=== PATIENT | male | born 1995 | race Caucasian/White ===

== ENCOUNTER 2022-11-16 22:46 | Emergency (ER) | payer OTHER ==
[~2022-11-16] VITALS: Ht 188 cm; Wt 111.8 kg
[2022-11-16 22:48] VITALS: TEMP 98.1
[2022-11-17] MEDS ORDERED: HYDROCODONE/ACETAMINOPHEN 5-325 MG TABLET PO ONE
[2022-11-17] MEDS ORDERED: KETOROLAC TROMETHAMINE 30 MG/ML VIAL IM ONE
[2022-11-17] MEDS ORDERED: LIDOCAINE 5% TRANSDERMAL PATCH TD ONE (00:30)
[2022-11-17] MEDS ORDERED: CYCL-448 PO (02:36)
[2022-11-17 02:43] VITALS: BP 139/82; PULSE 76; RESP 16
== END 2022-11-17 02:44 | disposition home or self-care (01) ==
LOC: EMS 22:48
DX: M46.1 Sacroiliitis, not elsewhere classified (principal); G89.29 Other chronic pain
CPT/HCPCS: 99283; 72100; 96372; J1885